=== PATIENT | male | born 1970 | race Hispanic/Latino ===

== ENCOUNTER 2017-09-02 06:20 | Day surgery (SDC) | payer BC, OTHER ==
[2017-08-27 12:31] VITALS: BMI 25.4
[2017-09-02] MEDS: Lidocaine 1%/Epinephrine 1:100000 30 ml vial IJ ONE ×2 (07:45→08:31)
[2017-09-02] MEDS: ceFAZolin IV 2 gm in Dextrose 2 GM/50 ML BAG IVPB ONE ×2 (07:46→08:20)
[2017-09-02] MEDS ORDERED: Propofol 10 mg/ml Inj (20 ML) ONE (07:53)
[2017-09-02] MEDS ORDERED: Midazolam 2 MG/2 ML VIAL ONE (07:53)
[2017-09-02] MEDS ORDERED: Rocuronium 10 mg/ml (5 ml) ONE ×2 (07:55→10:34)
[2017-09-02] MEDS ORDERED: Bupivacaine HCl 0.25% PF (10 ml) Inj ONE (08:03)
[2017-09-02] MEDS ORDERED: HYDROmorphone 0.5 mg/0.5 ml ISec IVP PRN ×2 (09:32→10:48)
[2017-09-02] MEDS ORDERED: Dexamethasone 4 mg/1 ml IVP PRN (09:32)
[2017-09-02] MEDS: Bupivacaine HCl 0.25% PF (10 ml) Inj ONE ×4 (09:50→10:45)
[2017-09-02] MEDS ORDERED: Neostigmine Methylsulfate 3mg/3ml Syringe IV ONE (10:34)
[2017-09-02] MEDS ORDERED: Lidocaine Hydrochloride 5 ML INJ ONE (10:34)
[2017-09-02] MEDS ORDERED: Morphine 4 MG/ML VIAL ONE (10:47)
--- NOTE | 2017-09-02 11:22 | PCM.SURG1 ---
Surgeon's Initial Post Op Note - Surgeon's Notes Surgeon: Lionel Clinical Nursing Director: [id number] Type of Anesthesia: General Endo, Block Regional Pre-Operative Diagnosis: Bilateral inguinal hernias Operative Findings: Bilateral inguinal hernias Post-Operative Diagnosis: Bilateral inguinal hernias Operation Performed: Robotic assisted bilateral inguinal hernia repair with mesh Specimen/Specimens Removed: R cord lipoma Estimated Blood Loss: EBL {In ML}: 15 Blood Products Given: N/A Drains Used: No Drains Post-Op Condition: Good Date of Surgery/Procedure: 09/02/17 Time of Surgery/Procedure: 08:00
[2017-09-02] MEDS ORDERED: Oxycodone/Acetaminophen 5/325 mg Tab PO ONE ×2 (11:24→14:00)
[2017-09-02] MEDS ORDERED: Lactated Ringer's 1,000 ML IV ONE (12:40)
[2017-09-02 13:25] VITALS: RESP 18; O2SAT 100
[2017-09-02 15:25] VITALS: BP 100/82; PULSE 68; TEMP 97
--- NOTE | 2017-09-09 03:35 | OP ---
PROCEDURE DATE: 09/02/2017 PREOPERATIVE DIAGNOSIS: Right inguinal hernia, possible left inguinal hernia. POSTOPERATIVE DIAGNOSES: 1. Bilateral inguinal hernia. 2. Large lipoma of the left inguinal hernia. PROCEDURES DONE: 1. Robotic right inguinal hernia repair with mesh. 2. Robotic left inguinal hernia repair with mesh. 3. Robotic excision of the lipoma of the spermatic cord on the left side. 4. Laparoscopic bilateral TAP block placement. SURGEON: Rafael Flowers MD PROGRAM INSTRUCTOR: CHELSY Canas TYPE OF ANESTHESIA: General endotracheal tube anesthesia. ESTIMATED BLOOD LOSS: Around 10 mL. COMPLICATIONS: None. DRAINS: None. PATHOLOGY: Lipoma of the left spermatic cord was sent for Pathology. COMPLICATIONS: None. INTRAOPERATIVE FINDINGS: The patient had left indirect hernia as well as very small direct hernia as well as lipoma of the cord and the patient also had a right indirect inguinal hernia. DESCRIPTION OF PROCEDURE: On intraoperative steps, this 47-year-old male was diagnosed with right inguinal hernia and possible left inguinal hernia. The patient was brought to the OR, after consenting for the robotic inguinal hernia repair with the mesh, placed supine on the operating table. After induction of the anesthesia, abdomen was prepped and draped in the usual sterile fashion. A supraumbilical transverse incision was made. After incising skin and subcutaneous tissue, the fascia was incised. A robotic camera port was placed. Another three 8-mm port was placed in the upper abdomen. The robot was brought in. Camera arm as well as arm 1 and arm 2 was docked. The patient had right inguinal hernia. The patient also had a left indirect inguinal hernia with very small direct inguinal hernia and now the peritoneal dissection was done from the left ASIS up to the right ASIS. Peritoneum was dissected. The midline dissection was done up to the space of Retzius, first the right side dissection was done. The peritoneum was dissected from the lateral abdominal wall and vas deferens as well as spermatic cord vessels was dissected. The peritoneal cavity was completely dissected free and it was reduced back into the peritoneal cavity. A proper hemostasis was achieved and now an inferior dissection was done to the peritoneal reflection, now the left side dissection was done, and the peritoneum was from the left abdominal wall, vas deferens as well as spermatic cord vessels were identified and the patient had a very small hernia repair that was also reduced back into the peritoneal cavity. The patient also had a very small direct hernia and the patient had a large lipoma of the left spermatic cord that was reduced back into the peritoneal cavity, excised, and it was sent off the table for the pathology. After that, the left and right meshes were implanted. After proper implantation of the mesh, the peritoneum was sutured with 2-0 Vicryl as well as 2-0 Vicryl V-Loc continuous sutures and after that, the robot was undocked. Procedure was converted to laparoscopic, laparoscopic bilateral TAP block was given; the left and right side, 30 mL of Marcaine was given. After that, the umbilical port site as well as all other port sites were closed in 2 layers, the fascia with 0 Vicryl, skin with a 4-0 Monocryl, and dry sterile dressing was applied. The patient tolerated the procedure well. Count of the instrument and gauze was correct. There was no apparent complication. The patient was extubated in the OR and sent to the postanesthesia care unit in stable condition. Rafael Flowers MD
== END 2017-09-02 15:26 | disposition home or self-care (01) ==
LOC: C.SDS 06:20
PROVIDERS: ATTEND Surgery Surgical Critical Care
DX: K40.20 Bilateral inguinal hernia, without obstruction or gangrene, not specified as recurrent (principal); D17.6 Benign lipomatous neoplasm of spermatic cord
CPT/HCPCS: 49650; 55520; 88304; C1781; J0690; J1170; J1885; J2250; J2270; J2405; J2704; J2710; J3010; J7120